=== PATIENT | male | born 1980 | race Caucasian/White ===

== ENCOUNTER 2016-12-23 12:08 | Day surgery (SDC) | payer MEDICARE ==
[~2016-12-23] VITALS: Ht 177.8 cm; Wt 62.7 kg
[2016-12-23] VITALS (25 sets, daily range): BP systolic 117–151; BP diastolic 63–86; PULSE 70–105; RESP 16–20; TEMP 97.4–98.3; O2SAT 94–100; Ht 177.8 cm; Wt 62.7 kg
[~2016-12-23 12:08] MED LIST: LIDOCAINE 1% (10mg/ml) 2ml SDV INJ ONE; LR 1,000 ML IV SCH; ONDA4TAB4 PO; OXYC10TA57 PO
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
[2016-12-23] MEDS ORDERED: BUPIVACAINE 0.25% (2.5mg/ml) INJ 30ml SDV ONE (12:18)
[2016-12-23] MEDS ORDERED: CLINDAMYCIN 600mg IVPB 50 ML IV ONE (12:30)
[2016-12-23] MEDS ORDERED: SALINE FLUSH 10ml SYRINGE ONE ×2 (13:39→14:35)
[2016-12-23] MEDS ORDERED: PROPOFOL 200mg 20 ML IV ONE (13:58)
[2016-12-23] MEDS ORDERED: ROCURONIUM 50mg/5ml INJECTION IV ONE (13:58)
[2016-12-23] MEDS ORDERED: LIDOCAINE 2% (20mg/ml) 5ml PF SDV ONE (13:58)
[2016-12-23] MEDS ORDERED: FENTANYL 100mcg/2ml INJECTION ONE (14:00)
[2016-12-23] MEDS ORDERED: MIDAZOLAM 2mg/2ml INJECTION ONE (14:00)
[2016-12-23] MEDS ORDERED: ONDANSETRON 4mg/2ml INJECTION ONE (14:35)
[2016-12-23] MEDS ORDERED: PHENYLEPHRINE 10mg/ml INJECTION ONE (14:35)
[2016-12-23] MEDS ORDERED: EPHEDRINE SULFATE 50mg/ml INJECTION ONE (14:35)
[2016-12-23] MEDS ORDERED: DEXAMETHASONE 4mg/ml - 1ml INJECTION ONE (14:35)
[2016-12-23] MEDS ORDERED: KETOROLAC 30mg/ml INJECTION ONE (14:35)
[2016-12-23] MEDS ORDERED: HYDROMORPHONE 2mg/ml INJECTION ONE (15:06)
--- NOTE | 2016-12-23 15:34 | ANESPREOP ---
Anesthesia Record Date and Time DATE: 12/23/16 TIME: 1344 Proposed Surgical Procedure ROB. LAP. PEREZ Allergies: Coded Allergies: Penicillins (Verified Allergy, Unknown, HIVES, 12/23/16) Ht/Wt/BMI Height: 5 ' 10.00 " Weight: 58.400 kg BMI: 18.5 kg/m2 Vital Signs Date Time Temp Pulse Resp B/P Pulse Ox O2 Delivery O2 Flow Rate FiO2 12/23/16 12:38 98.3 105 18 133/66 97 Room Air Medications Inpatient Medications Current Medications Medications (Trade) Dose Ordered Sig/Mae Start Time Stop Time Status Last Admin Dose Admin Lactated Ringer's (Lactated Ringers) 1,000 ml @ 50 mls/hr Q20H 12/23/16 07:00 12/23/16 13:14 50 MLS/HR Ondansetron HCl (Zofran) 4 Mg Tablet, 4 MG PO Q4-6HPRN PRN for NAUSEA, (Reported ) Last Taken: on 12/20/16 0800 Oxycodone HCl (Oxycontin) 10 Mg Tab.er.12h, 10 MG PO Q4HPRN, (Reported) Last Taken: on 12/22/16 2200 Currently on Beta Glory: No Medical/Surgical History Anesthesia PMH: Denies: Anesthesia Reactions (NO AIRWAY ISSUES), Arthritis, Blood Transfusion Reac, Cancer, Clotting Problems, Glaucoma, Malignant Hyperthermia, Sleep Apnea Smoking Status: Current every day smoker Has pt. smoked today?: No Use Chewing Tobacco?: No Substance Use Type: prescription drug Alcohol Intake: rarely Last Drink: hours (ago) (12) Past Surgical History Orthopedic Surgeries: Yes - 3 LEVEL SPINAL FUSION Abdominal Surgeries: Genitourinary Surgeries: Cardiac Surgeries: Endocrine Surgeries: Reproductive Surgeries: Neurological Surgeries: Ear Surgeries: Nose Surgeries: Throat Surgeries: Other Surgeries: No Anesthesia Adverse Reactions: FOUND none Family Hx of Anesthesia Advers: none Hx of Motion Sickness: No Physical Exam Respiratory: Lungs clear Cardiovascular: FOUND Regular rate, rhythm Airway Assessment Mallampati Score: II TMD: 3 Fingerbreadths Neck Extension: Good Overall Assessment: No Airway Concerns ASA: 2 Plan Anesthesia Plan: GETA Discussion Discussed risks/options/alternatives of anesthesia and questions answered. Patient consents. Nursing pain assessment noted. Present: Spouse Attestation Statement Prior to the delivery of any anesthetic medication, I examined the patient, developed the plan, obtained the patient's consent and discussed the risk and benefits of the procedure with the patient/guardian. SLIME ADAMS CRNA Dec 23, 2016 15:30
[2016-12-23] MEDS ORDERED: GLYCOPYRROLATE 0.4mg/2ml INJECTION ONE (15:56)
[2016-12-23] MEDS ORDERED: NEOSTIGMINE 10mg/10ml INJECTION ONE (15:56)
--- NOTE | 2016-12-23 16:28 | GSPOSTPROC ---
Immediate Operative Note DATE: 12/23/16 TIME: 16:26 Postop Diagnosis: Chronic cholecystitis Surgical Procedure: Other (Multiport robotic laparoscopic cholecystectomy) Surgeon: [place] ASA: 2 RAMON CISNEROS MD Dec 23, 2016 16:28
[2016-12-23] MEDS ORDERED: ACETAMINOPHEN 500 MG TABLET PO PRN (16:30)
[2016-12-23] MEDS ORDERED: ONDANSETRON 4mg/2ml INJECTION IV PRN ×3 (16:30→16:45)
[2016-12-23] MEDS ORDERED: PROMETHAZINE 25 MG INJECTION IV PRN (16:30)
[2016-12-23] MEDS ORDERED: IBUPROFEN 200 MG TABLET PO PRN (16:30)
[2016-12-23] MEDS ORDERED: MORPHINE SULFATE 10 MG SYRINGE IV PRN (16:30)
[2016-12-23] MEDS ORDERED: HYDROMORPHONE 2mg/ml INJECTION IV PRN (16:45)
[2016-12-23] MEDS ORDERED: DiphenhydrAMINE 50 MG/ML INJECTION IV ONE ×2 (16:45)
[2016-12-23] MEDS: LR 1,000 ML IV SCH (17:13)
--- NOTE | 2016-12-23 17:22 | ANESPO ---
Post-Op Note Date 12/23/16 Time: 17:21 Status Pt Participated in Evaluation: Pt participated in person Vital Signs Date Time Temp Pulse Resp B/P Pulse Ox O2 Delivery O2 Flow Rate FiO2 12/23/16 17:10 81 20 136/78 98 12/23/16 17:05 Room Air 12/23/16 16:33 97.5 Respiratory Function: Airway patent Cardiovascular Function: Regular pulse Mental Status: Alert/oriented Pain Level Intensity: 5 Hydration: IV infusing, Nausea (slightly- giving PRN meds) Complications during Recovery None apparent Follow-Up Instructions Instructions Per Surgeon SLIME ADAMS CRNA Dec 23, 2016 17:22
[2016-12-23] MEDS: OXYCODONE I.R. 5 MG TABLET PO PRN ×2 (19:26→23:31)
--- NOTE | 2016-12-24 01:36 | NUR ---
Chart Check 24 hour chart check completed
[2016-12-24 04:48] VITALS: BP 109/66; PULSE 61; RESP 18; TEMP 96.1; O2SAT 99
--- NOTE | 2016-12-24 05:37 | NUR ---
SHIFT SUMMARY PT HAS SLEPT SOUNDLY THROUGHOUT THE NIGHT. PT GIVEN MOTRIN AND ROXICODONE FOR PAIN, SEE EMAR FOR TIMES. DENIES N/V/SOA. REGULAR DIET. UP WITH SBA TO BR. LR RUNNING @ 75ML/HR IN RIGHT HAND. VSS, ON RA. BED LOCKED AND LOW, BED ALARM ON. CALL LIGHT WITHIN REACH. WILL CONTINUE TO MONITOR.
[2016-12-24 05:53] VITALS: TEMP 97.5
[2016-12-24] MEDS: LR 1,000 ML IV SCH (05:58)
[2016-12-24] MEDS: OXYCODONE I.R. 5 MG TABLET PO PRN ×2 (07:22→11:37)
[2016-12-24 08:00] VITALS: BP 136/90; PULSE 78; RESP 18; TEMP 97.7; O2SAT 96
--- NOTE | 2016-12-24 09:44 | OPNOTEF ---
DATE OF OPERATION 12/23/2016 PREOPERATIVE DIAGNOSES 1. Right upper quadrant abdominal pain. 2. Abnormal gallbladder ejection fraction on 12/16/2016 suggesting biliary dyskinesia or chronic cholecystitis. POSTOPERATIVE DIAGNOSES 1. Right upper quadrant abdominal pain. 2. Abnormal gallbladder ejection fraction on 12/16/2016 suggesting biliary dyskinesia or chronic cholecystitis. OPERATION Multiport robotic laparoscopic cholecystectomy. SURGEON Sam Dodson MD ANESTHESIA General ASA CLASS 2 FINDINGS The gallbladder appeared to be chronically inflamed. There were some adhesions to the outside of the gallbladder. The liver appeared normal. DESCRIPTION OF OPERATION The patient did have injectable indocyanine green dye administered intravenously preoperatively. The patient was placed in supine position on the operating table. General anesthesia was satisfactorily induced. The abdomen was prepped and draped in routine sterile fashion. Bupivacaine 0.25% without epinephrine was infiltrated into the skin and underlying tissue at an infraumbilical incision site. An infraumbilical incision was made. This incision was then extended through the abdominal wall under direct vision and the peritoneal cavity was entered. This was a Louis type entry. An 8.5 mm da Tc camera port was placed at the infraumbilical incision. An 8.5 mm, 30 degrees da Tc laparoscope was inserted at the infraumbilical port. The skin and underlying structures at the abdominal wall were infiltrated with bupivacaine at a port site at the left upper quadrant of the abdomen at the midclavicular line. An incision was made at this site and an 8 mm da Tc instrument port was placed at this incision. The skin and underlying abdominal wall structures were infiltrated with bupivacaine at another incision site at the left side of the abdomen. An incision was made at this site. An AirSeal cement tester assistant was placed at this incision. The skin and underlying abdominal wall structures were infiltrated with bupivacaine at a port site at the right upper quadrant of the abdomen. An incision was made at this area and an 8 mm da Tc instrument port was placed at this incision. The skin and underlying abdominal wall structures were infiltrated with bupivacaine at another port site at a more lateral location at the right side of the abdomen. An incision was made at this site and another 8 mm da Tc instrument port was placed at this incision. The patient was placed in reverse Trendelenburg position. The right side of the table was tilted up. The da Tc robotic system was brought up to the operating table. The da Tc robotic system was docked to the camera port and the instrument ports. The da Tc 8.5 mm 30 degree laparoscope was inserted at the camera port. The [place] bipolar forceps was inserted at the 8 mm instrument port at the left upper quadrant of the abdomen associated with instrument arm #1. A Cadiere forceps was inserted at the 8 mm instrument port at the right upper quadrant of the abdomen associated with instrument arm #2. A ProGrasp forceps was inserted at the 8 mm instrument port at the right lateral location at the abdomen associated with instrument arm #3. These instruments were all placed into a position adjacent to the gallbladder. The surgeon then went from the patient's side at the operating table to the surgeon console. The ProGrasp forceps with instrument arm #3 was used to grasp the fundus of the gallbladder and elevate the gallbladder and reflect the liver up superiorly towards the right diaphragm. The infundibulum of the gallbladder was grasped with the Cadiere forceps with instrument arm #2. Dissection was performed at the hepatocystic triangle. The cystic artery was dissected out and identified. The cystic duct was dissected out and identified. The cystic duct was demonstrated with Firefly fluorescence imaging at this time. Dissection was performed at the hepatocystic triangle until the only two structures remaining were the cystic duct and the cystic artery. A critical view of safety was achieved at this time. The hepatocystic triangle was cleared of all fatty and fibrous tissue until the only two structures remaining were the cystic duct and the cystic artery. Three of the Hem-o-Herve clips were applied to the cystic duct at the junction of the cystic duct and the gallbladder. The cystic duct was divided between the Hem-o-Herve clips with curved dissecting scissors. Two of the Hem-o-Herve clips were left in place on the cystic duct stump. Two of the Hem-o-Herve clips were then applied to the cystic artery. The cystic artery was divided between the Hem-o-Herve clips with the monopolar curved scissors. The monopolar curved scissors was then used to dissect the gallbladder out of the gallbladder bed. Tissue was coagulated with the monopolar curved scissors as the gallbladder was being dissected out of the gallbladder bed to maintain hemostasis. The gallbladder was completely dissected out of the gallbladder bed. Hemostasis was maintained during this time by coagulation of bleeding points at the gallbladder bed with the monopolar curved scissors. The gallbladder was placed in a position in the peritoneal cavity along the margin of the liver. The instruments were then removed from the instrument ports. The da Tc laparoscope was removed from the camera port. The da Tc robotic system was undocked from the ports. The surgeon left the surgeon console and returned back to the side of the patient at the operating table. The da Tc 8.5 mm 30 degree laparoscope was inserted at one of the right sided da Tc instrument ports. The specimen retrieval pouch was inserted at the camera port. The gallbladder was placed in the specimen retrieval pouch. The specimen retrieval pouch containing the gallbladder was brought out through the infraumbilical incision. The gallbladder was submitted as a specimen for study by the pathologist. The instrument ports were all removed. Carbon dioxide was removed from the peritoneal cavity by desufflation. The fascial layer at the infraumbilical incision was closed with a series of simple interrupted stitches using 0 Vicryl suture. The skin margins were then closed at all the incisions with subcuticular stitches using 4-0 Vicryl suture. Benzoin and 1/4-inch wide Steri-Strips were applied to the incisions. Band-Aids were applied to the incisions. The patient tolerated the operation well. The patient was transferred from the operating room to the recovery room in satisfactory condition. GISELLE
--- NOTE | 2016-12-24 11:05 | NUR ---
CM CM IN TO VISIT WITH PT. HE IS ALERT AND ORIENTED. HE IS WITNESSED BY THIS CM TO AMBULATE IN [place] WITH SBA. HE DENIES DC NEEDS. HE PLANS TO RETURN HOME. HE IS GIVEN CM CONTACT INFORMATION. DEANNAE SCORE IS 1. Addendum: 12/24/16 at 1106 by ELTICIA SOOD RN Amended: Links added.
--- NOTE | 2016-12-24 11:49 | PNF ---
DATE 12/24/2016 POSTOP DAY #1 HISTORY The patient is doing well. He is tolerating a regular diet. He is ambulating well. He has good pain control with oral analgesics. PHYSICAL EXAMINATION VITAL SIGNS: Temperature is 96.1 degrees oral. Pulse is 61. Respiratory rate is 18. Blood pressure is 109/66. Oxygen saturation is 99% on room air. ABDOMEN: All of the abdominal incisions look good. No sign of any wound healing problem. IMPRESSION Doing well following multiport robotic laparoscopic cholecystectomy on 12/23/2016. PLAN Discharge patient from [facility] today. DISCHARGE MEDICATIONS 1. Tylenol 325 mg 1-2 tablets p.o. every 5 hours p.r.n. pain. 2. Ibuprofen 200 mg 2-4 tablets p.o. every 6 hours p.r.n. pain. 3. I did give the patient a prescription for oxycodone 5 mg one p.o. every 4 hours p.r.n. pain (dispense 40 - no refills). [facility]
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
== END 2016-12-24 11:52 | disposition home or self-care (01) ==
LOC: SCU 12:08 → SRG 17:45 → SCU 12-24 11:52
PROVIDERS: ATTEND Surgery
DX: R10.11 Right upper quadrant pain (principal); R93.2 Abnormal findings on diagnostic imaging of liver and biliary tract; F17.210 Nicotine dependence, cigarettes, uncomplicated; Z88.0 Allergy status to penicillin; Z98.1 Arthrodesis status
CPT/HCPCS: 47562; A9270; J0330; J1100; J1170; J1200; J1885; J2250; J2370; J2405; J2704; J2710; J3010; J7030; J7120; S2900; 88304